=== PATIENT | female | born 1945 | race Caucasian/White ===

== ENCOUNTER 2022-02-08 16:06 | Inpatient (IN) | payer MEDICARE ==
--- NOTE | 2022-02-08 16:43 | XRAY ---
Indication: Dyspnea. Comparison: July 16, 2021 Portable chest demonstrates new left left base infiltrate versus atelectasis. Remaining heart and right lung unremarkable again with incidental right jugular central venous access catheter and 2 cardiac electrodes. Bony thorax intact again with osteopenia and degenerative changes.
[2022-02-08 17:08] LABS: Basophil (Absolute #) 0.02 x10^3/uL (0-0.4); Eosinophil % 7.2 % (0.00-5.0); Eosinophil (Absolute #) 0.43 x10^3/uL (0-0.5); Hematocrit 39.4 % (35-47); Lymphocyte (Absolute #) 1.34 x10^3/uL (1.0-4.6); Lymphocytes % 22.4 % (24.0-44.0); Mean Cell Volume 95.9 fL (78-100); Mean Corpuscular Hemoglobin 29.2 pg (26-32); Mean Corpuscular Hgb Concent. 30.5 g/dL (32-36); Mean Platelet Volume 9.7 fL (7.5-11.0); Monocyte (Absolute #) 0.37 x10^3/uL (0.0-1.3); Monocytes % 6.2 % (0.0-12.0); Neutrophil % 63.6 % (36.0-66.0); Platelet Count 314 x10^3/uL (150-450); Red Blood Count 4.11 x10^6/uL (4.1-5.4); Red Cell Distribution Width 15.1 % (11.5-14.0)
[2022-02-08 17:20] LABS: INR 1.04 (0.8-3.0); PTT 27.7 SECONDS (25.1-36.5)
[2022-02-08 17:25] LABS: Appearance TURBID (CLEAR)
[2022-02-08 17:25] LABS: ALBUMIN 4.1 g/dL (3.5-5.0); BILIRUBIN,TOTAL 0.6 mg/dL (0.2-1.3); Calcium 8.7 mg/dL (8.4-10.2); Creatinine 1 1.73 mg/dL (0.52-1.04); EST GLOMERULAR FILTRATION RATE 30.6 ML/MIN; Potassium 4.6 mmol/L (3.5-5.1)
--- NOTE | 2022-02-08 17:25 | ERPHSYRPT ---
- History of Present Illness Source: patient, other ( in ER w CV19) Exam Limitations: other (Pt oriented to name only which is baseline. majority of Hx from .) Patient Subjective Stated Complaint: Patient c/o being tired. Patient's son and states patient is coughing and SOB. Triage Nursing Assessment: Patient brought back to ED in a w/c. She is dependent on others to transfer; took assist of 2 to transfer from chair to bed. 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 No SOB noted but patient has a moist, non-productive cough. Rhonchi noted in upper lung graham. Patient is confused but the confusion is not new for this patient per 's report. She is alert to self only; confused to time, place, situation. Physician History: 76 yo wf who's is also being seen in the ER for CV19 presents w cough. Pt has a chronic, dense R hemiparesis and is only oriented x1 which is her baseline. states that she has had a cough for 2-3 days and has been dyspneic. Coryza/N/V/D/chest pain/abdominal pain all denied by . Timing/Duration: other (2-3 days) Cough Quality/Degree: dry cough Possible Cause: no prior episodes Modifying Factors: Improves With: coughing Associated Symptoms: shortness of breath Allergies/Adverse Reactions: No Known Drug Allergies Allergy (Verified 02/08/22 16:12) Home Medications: Amitriptyline HCl 25 mg [Amitriptyline 25 mg Tablet] 75 mg PO HS 02/08/22 [History] Atorvastatin Calcium [Lipitor] 1 tab PO HS 02/08/22 [History] Carvedilol [Coreg ] 1 tab PO DAILY 02/08/22 [History] Hx Tetanus, Diphtheria Vaccination/Date Given: Yes Hx Influenza Vaccination/Date Given: No Hx Pneumococcal Vaccination/Date Given: Yes Immunizations Up to Date: Yes Travel Risk - International Travel Have you traveled outside of the country in past 3 weeks: No - Coronavirus Screening Are you exhibiting any of the following symptoms?: Yes Symptoms: Cough: New Onset, Headaches/Body Aches/Fatigue Close contact with a COVID-19 positive Pt in past 14-21 Days: Yes - Vaccine Status Have you recieved a Covid-19 vaccination: No - Review of Systems Constitutional: No Symptoms Eyes: No Symptoms Ears, Nose, & Throat: No Symptoms, Nose Congestion, Nose Discharge Respiratory: No Symptoms, Cough, Dyspnea Cardiac: No Symptoms Abdominal/Gastrointestinal: No Symptoms Genitourinary Symptoms: No Symptoms Musculoskeletal: No Symptoms Skin: No Symptoms Neurological: No Symptoms Psychological: No Symptoms Endocrine: No Symptoms Hematologic/Lymphatic: No Symptoms Immunological/Allergic: No Symptoms - Past Medical History Pertinent Past Medical History: Yes Neurological History: Stroke ENT History: No Pertinent History Cardiac History: Aneurysm, Hypertension Respiratory History: No Pertinent History Endocrine Medical History: No Pertinent History Musculoskeletal History: Osteoarthritis GI Medical History: No Pertinent History History: No Pertinent History Psycho-Social History: No Pertinent History Female Reproductive Disorders: No Pertinent History - Past Surgical History Past Surgical History: Yes Neuro Surgical History: Other Cardiac: No Pertinent History Gastrointestinal: No Pertinent History Genitourinary: No Pertinent History Musculoskeletal: No Pertinent History Female Surgical History: No Pertinent History - Social History Smoking Status: Former smoker Exposure to second hand smoke: No Drug Use: none Patient Lives Alone: No Significant Family History: no pertinent family hx - Nursing Vital Signs Nursing Vital Signs: Initial Vital Signs Temperature 97 F 02/08/22 16:13 Pulse Rate 74 02/08/22 16:13 Respiratory Rate 20 02/08/22 16:13 Blood Pressure 109/57 02/08/22 16:13 O2 Sat by Pulse Oximetry 97 02/08/22 16:13 Pain Scale Pain Intensity 0 WNL - Physical Exam General Appearance: no apparent distress Eye Exam: PERRL/EOMI, eyes nml inspection Ears, Nose, Throat Exam: normal ENT inspection, TMs normal Neck Exam: normal inspection, non-tender, supple, No meningismus, No mass, No Brudzinski, No Kernig's Respiratory Exam: crackles/rales (Faint bibasilar rales), No respiratory distress Cardiovascular Exam: regular rate/rhythm, normal heart sounds, normal peripheral pulses, capillary refill <2 sec, No murmur Gastrointestinal/Abdomen Exam: soft, normal bowel sounds, No tenderness Back Exam: other (Nursing states mild sacral discoloration which might be early stage 1 pressure ulceration) Extremity Exam: normal inspection, normal range of motion Neurologic Exam: alert, other (Dense R hemiparesis/Oriented x1) Skin Exam: normal color, warm, dry, No rash Lymphatic Exam: No adenopathy SpO2 Interpretation: normal SpO2: 97 O2 Delivery: Room Air - Course Nursing assessment & vital signs reviewed: Yes - Radiology Exams Chest X-ray Interpretation: Discussed w/ radiologist (LLL atelectasis vs infiltrate) Ordered Tests: Active Orders 24 hr Category Date Time Status EKG-ER Only STAT Care 02/08/22 16:23 Completed Consistent Carbohydrate Diet 2000 Calorie Diet 02/09/22 Breakfast Active CHEST 1 VIEW (PORTABLE) Stat Exams 02/08/22 16:16 Completed BLOOD CULTURE Stat Lab 02/08/22 16:20 Received CBC W DIFF AM.LAB Lab 02/09/22 04:00 Ordered CBC W DIFF Stat Lab 02/08/22 16:55 Completed CMP AM.LAB Lab 02/09/22 04:00 Ordered CMP Stat Lab 02/08/22 16:55 Completed CULTURE,URINE Stat Lab 02/08/22 16:48 Received Lactic Acid Stat Lab 02/08/22 16:32 Completed NT PRO BNP Stat Lab 02/08/22 16:55 Completed PROTIME WITH INR Stat Lab 02/08/22 16:55 Completed PTT Stat Lab 02/08/22 16:55 Completed TROPONIN Q4H Lab 02/08/22 16:55 Completed TROPONIN Q4H Lab 02/08/22 20:11 Completed TROPONIN Q4H Lab 02/09/22 00:30 Ordered UA W/RFX CULTURE Stat Lab 02/08/22 16:48 Completed Transfer Order Routine Transfer 02/08/22 Completed Medication Summary Generic Name Dose Route Start Last Admin Trade Name Freq PRN Reason Stop Dose Admin Albuterol Sulfate 4 puff 02/08/22 18:49 Albuterol Common Canister Inhaler IH 03/10/22 18:48 Q4H PRN PRN SHORTNESS OF BREATH/WHEEZING Heparin Sodium (Beef Lung) 5,000 unit 02/08/22 22:00 Heparin 5000 Units/0.5 Ml 5,000 Unit/0.5 Ml Syr SQ 03/10/22 21:59 Q8HT JEFF Ceftriaxone Sodium/Dextrose 1 g in 50 mls @ 100 mls/hr 02/09/22 10:00 Rocephin 1 Gm-D5w 50 Ml Bag IV 02/12/22 09:59 Q24H10 JEFF Sodium Chloride 1,000 mls @ 100 mls/hr 02/08/22 19:00 Sodium Chloride 0.9% 1000 Ml IV 03/10/22 18:59 .Q10H JEFF Ondansetron HCl 4 mg 02/08/22 18:49 Ondansetron Hcl 4 Mg/2 Ml Vial IV 03/10/22 18:48 Q6H PRN PRN NAUSEA/VOMITING Pantoprazole Sodium 40 mg 02/09/22 10:00 Pantoprazole 40 Mg Vial IV 03/11/22 09:59 Q24H10 JEFF Discontinued Medications Generic Name Dose Route Start Last Admin Trade Name Freq PRN Reason Stop Dose Admin Ceftriaxone Sodium/Dextrose 1 g in 50 mls @ 100 mls/hr 02/08/22 18:48 02/08/22 19:35 Rocephin 1 Gm-D5w 50 Ml Bag IV 02/08/22 19:17 Infused STAT STA Infusion Sodium Chloride 1,000 mls @ 999 mls/hr 02/08/22 18:49 02/08/22 20:27 Sodium Chloride 0.9% 1000 Ml IV 02/08/22 19:49 Infused .Q1H1M STA Infusion Ceftriaxone Sodium/Dextrose Confirm 02/08/22 18:55 Rocephin 1 Gm-D5w 50 Ml Bag Administered 02/08/22 18:56 Dose 1 g in 50 mls @ ud IV .[facility] Lab/Rad Data: Laboratory Result Diagrams 02/08/22 16:55 02/08/22 16:55 Laboratory Results 02/08/22 02/08/22 02/08/22 Range/Units 20:11 17:00 16:55 WBC (4.0-10.5) x10^3/uL RBC (4.1-5.4) x10^6/uL Hgb (12.0-16.0) g/dL Hct (35-47) % MCV (78-100) fL MCH (26-32) pg MCHC (32-36) g/dL RDW (11.5-14.0) % Plt Count (150-450) x10^3/uL MPV (7.5-11.0) fL Gran % (36.0-66.0) % Immature Gran % (Auto) (0.00-0.4) % Nucleat RBC Rel Count (0.00-0.1) % Eos # (Auto) (0-0.5) x10^3/uL Immature Gran # (Auto) (0.00-0.03) x10^3u/L Absolute Lymphs (auto) (1.0-4.6) x10^3/uL Absolute Monos (auto) (0.0-1.3) x10^3/uL Absolute Nucleated RBC (0.00-0.01) x10^3u/L Lymphocytes % (24.0-44.0) % Monocytes % (0.0-12.0) % Eosinophils % (0.00-5.0) % Basophils % (0.0-0.4) % Absolute Granulocytes (1.4-6.9) x10^3/uL Basophils # (0-0.4) x10^3/uL PT (9.4-12.5) SECONDS INR (0.8-3.0) APTT (25.1-36.5) SECONDS Sodium (137-145) mmol/L Potassium (3.5-5.1) mmol/L Chloride (98-107) mmol/L Carbon Dioxide (22-30) mmol/L Anion Gap (5-15) MEQ/L BUN (7-17) mg/dL Creatinine (0.52-1.04) mg/dL Estimated GFR ML/MIN Glucose (74-106) mg/dL Lactic Acid (0.4-2.0) Calcium (8.4-10.2) mg/dL Total Bilirubin (0.2-1.3) mg/dL AST (14-36) U/L ALT (0-35) U/L Alkaline Phosphatase (38-126) U/L Troponin I 0.021 0.015 (0.000-0.034) ng/mL NT-Pro-B Natriuret Pep (0-900) pg/mL Serum Total Protein (6.3-8.2) g/dL Albumin (3.5-5.0) g/dL Urinalys Dipstick Clnc Urine Color (YELLOW) Urine Appearance (CLEAR) Urine pH (5-6) Ur Specific [place] (1.005-1.025) POC Urine Protein Conf (Negative) Urine Ketones (NEGATIVE) Urine Nitrite (NEGATIVE) Urine Bilirubin (NEGATIVE) Urine Urobilinogen (0-1) mg/dL Urine Leukocytes (NEGATIVE) Urine WBC (Auto) (0-5) /HPF Urine RBC (Auto) (0-2) /HPF U Epithel Cells (Auto) (FEW) /HPF Urine Bacteria (Auto) (NEGATIVE) /HPF Urine RBC (0-5) Luke/ul Ur Culture Indicated? Urine Glucose (NEGATIVE) mg/dL Influenza Type A Ag NEGATIVE (NEGATIVE) Influenza Type B Ag NEGATIVE (NEGATIVE) RSV (PCR) NEGATIVE (Negative) SARS-CoV-2 (PCR) POSITIVE A (NEGATIVE) 02/08/22 02/08/22 02/08/22 Range/Units 16:55 16:55 16:55 WBC 6.0 (4.0-10.5) x10^3/uL RBC 4.11 (4.1-5.4) x10^6/uL Hgb 12.0 (12.0-16.0) g/dL Hct 39.4 (35-47) % MCV 95.9 (78-100) fL MCH 29.2 (26-32) pg MCHC 30.5 L (32-36) g/dL RDW 15.1 H (11.5-14.0) % Plt Count 314 (150-450) x10^3/uL MPV 9.7 (7.5-11.0) fL Gran % 63.6 (36.0-66.0) % Immature Gran % (Auto) 0.3 (0.00-0.4) % Nucleat RBC Rel Count 0.0 (0.00-0.1) % Eos # (Auto) 0.43 (0-0.5) x10^3/uL Immature Gran # (Auto) 0.02 (0.00-0.03) x10^3u/L Absolute Lymphs (auto) 1.34 (1.0-4.6) x10^3/uL Absolute Monos (auto) 0.37 (0.0-1.3) x10^3/uL Absolute Nucleated RBC 0.00 (0.00-0.01) x10^3u/L Lymphocytes % 22.4 L (24.0-44.0) % Monocytes % 6.2 (0.0-12.0) % Eosinophils % 7.2 H (0.00-5.0) % Basophils % 0.3 (0.0-0.4) % Absolute Granulocytes 3.80 (1.4-6.9) x10^3/uL Basophils # 0.02 (0-0.4) x10^3/uL PT 11.0 (9.4-12.5) SECONDS INR 1.04 (0.8-3.0) APTT 27.7 (25.1-36.5) SECONDS Sodium 144 (137-145) mmol/L Potassium 4.6 (3.5-5.1) mmol/L Chloride 110 H (98-107) mmol/L Carbon Dioxide 27 (22-30) mmol/L Anion Gap 12.0 (5-15) MEQ/L BUN 48 H (7-17) mg/dL Creatinine 1.73 H (0.52-1.04) mg/dL Estimated GFR 30.6 ML/MIN Glucose 123 H (74-106) mg/dL Lactic Acid (0.4-2.0) Calcium 8.7 (8.4-10.2) mg/dL Total Bilirubin 0.60 (0.2-1.3) mg/dL AST 31 (14-36) U/L ALT 21 (0-35) U/L Alkaline Phosphatase 106 (38-126) U/L Troponin I (0.000-0.034) ng/mL NT-Pro-B Natriuret Pep 752 (0-900) pg/mL Serum Total Protein 8.0 (6.3-8.2) g/dL Albumin 4.1 (3.5-5.0) g/dL Urinalys Dipstick Clnc Urine Color (YELLOW) Urine Appearance (CLEAR) Urine pH (5-6) Ur Specific [place] (1.005-1.025) POC Urine Protein Conf (Negative) Urine Ketones (NEGATIVE) Urine Nitrite (NEGATIVE) Urine Bilirubin (NEGATIVE) Urine Urobilinogen (0-1) mg/dL Urine Leukocytes (NEGATIVE) Urine WBC (Auto) (0-5) /HPF Urine RBC (Auto) (0-2) /HPF U Epithel Cells (Auto) (FEW) /HPF Urine Bacteria (Auto) (NEGATIVE) /HPF Urine RBC (0-5) Luke/ul Ur Culture Indicated? Urine Glucose (NEGATIVE) mg/dL Influenza Type A Ag (NEGATIVE) Influenza Type B Ag (NEGATIVE) RSV (PCR) (Negative) SARS-CoV-2 (PCR) (NEGATIVE) 02/08/22 02/08/22 Range/Units 16:48 16:32 WBC (4.0-10.5) x10^3/uL RBC (4.1-5.4) x10^6/uL Hgb (12.0-16.0) g/dL Hct (35-47) % MCV (78-100) fL MCH (26-32) pg MCHC (32-36) g/dL RDW (11.5-14.0) % Plt Count (150-450) x10^3/uL MPV (7.5-11.0) fL Gran % (36.0-66.0) % Immature Gran % (Auto) (0.00-0.4) % Nucleat RBC Rel Count (0.00-0.1) % Eos # (Auto) (0-0.5) x10^3/uL Immature Gran # (Auto) (0.00-0.03) x10^3u/L Absolute Lymphs (auto) (1.0-4.6) x10^3/uL Absolute Monos (auto) (0.0-1.3) x10^3/uL Absolute Nucleated RBC (0.00-0.01) x10^3u/L Lymphocytes % (24.0-44.0) % Monocytes % (0.0-12.0) % Eosinophils % (0.00-5.0) % Basophils % (0.0-0.4) % Absolute Granulocytes (1.4-6.9) x10^3/uL Basophils # (0-0.4) x10^3/uL PT (9.4-12.5) SECONDS INR (0.8-3.0) APTT (25.1-36.5) SECONDS Sodium (137-145) mmol/L Potassium (3.5-5.1) mmol/L Chloride (98-107) mmol/L Carbon Dioxide (22-30) mmol/L Anion Gap (5-15) MEQ/L BUN (7-17) mg/dL Creatinine (0.52-1.04) mg/dL Estimated GFR ML/MIN Glucose (74-106) mg/dL Lactic Acid 1.2 (0.4-2.0) Calcium (8.4-10.2) mg/dL Total Bilirubin (0.2-1.3) mg/dL AST (14-36) U/L ALT (0-35) U/L Alkaline Phosphatase (38-126) U/L Troponin I (0.000-0.034) ng/mL NT-Pro-B Natriuret Pep (0-900) pg/mL Serum Total Protein (6.3-8.2) g/dL Albumin (3.5-5.0) g/dL Urinalys Dipstick Clnc MAIN LAB Urine Color BROWN (YELLOW) Urine Appearance TURBID (CLEAR) Urine pH 5.5 (5-6) Ur Specific [place] 1.025 (1.005-1.025) POC Urine Protein Conf 100 (Negative) Urine Ketones NEGATIVE (NEGATIVE) Urine Nitrite POSITIVE (NEGATIVE) Urine Bilirubin SMALL (NEGATIVE) Urine Urobilinogen 0.2 (0-1) mg/dL Urine Leukocytes SMALL (NEGATIVE) Urine WBC (Auto) >100 (0-5) /HPF Urine RBC (Auto) >101 (0-2) /HPF U Epithel Cells (Auto) RARE (FEW) /HPF Urine Bacteria (Auto) FEW (NEGATIVE) /HPF Urine RBC LARGE (0-5) Luke/ul Ur Culture Indicated? YES Urine Glucose NEGATIVE (NEGATIVE) mg/dL Influenza Type A Ag (NEGATIVE) Influenza Type B Ag (NEGATIVE) RSV (PCR) (Negative) SARS-CoV-2 (PCR) (NEGATIVE) - Progress Progress: improved Progress Note: 02/08/22 18:[address] Chawla 1L NS bolus 1gm IV Rocephin Counseled pt/family regarding: lab results, diagnosis, rad results - Departure Departure Disposition: Observation Clinical Impression: UTI (urinary tract infection), COVID-19, Mild dehydration Condition: Stable Critical Care Time: No
[2022-02-08 17:26] LABS: Bilirubin SMALL (NEGATIVE); Dipstick done @ ? MAIN LAB; Glucose NEGATIVE (NEGATIVE); Ketones NEGATIVE (NEGATIVE); Nitrite POSITIVE (NEGATIVE); Ph 5.5 (5-6); Protein,Urine Dip 100 (Negative); RBC LARGE Ery/ul (0-5); Specific Gravity 1.025 (1.005-1.025); Urobilinogen 0.2 mg/dL (0-1)
[2022-02-08 17:43] LABS: Bacteria FEW /HPF (NEGATIVE); Epithelial Cells RARE /HPF (FEW); WBC >100 /HPF (0-5)
[2022-02-08 17:46] LABS: RBC >101 /HPF (0-2); Urine Cultured Indicated? YES
[2022-02-08 17:53] LABS: INFLUENZA A NEGATIVE (NEGATIVE); INFLUENZA B NEGATIVE (NEGATIVE); RESPIRATORY SYNCTIAL VIRUS NEGATIVE (Negative)
[2022-02-08 18:12] LABS: SARS-CoV-2 Xpert Express POSITIVE (NEGATIVE)
[2022-02-08] MEDS ORDERED: ROCEPHIN 1 Gm-D5w 50 ml Bag** 1 G/50 ML IVPB IV STA (18:48)
[2022-02-08] MEDS ORDERED: Sodium Chloride 0.9% 1000 ML 1,000 ML IV STA (18:49)
[2022-02-08] MEDS ORDERED: Zofran 4 MG/2 ML VIAL IV PRN (18:49)
[2022-02-08] MEDS ORDERED: VENTOLIN COMMON CANISTER IH PRN (18:49)
[2022-02-08] MEDS ORDERED: ROCEPHIN 1 Gm-D5w 50 ml Bag** 1 G/50 ML IVPB IV ONE (18:55)
[2022-02-08] MEDS: Sodium Chloride 0.9% 1000 ML 1,000 ML IV SCH (22:40)
[2022-02-08] MEDS ORDERED: REMDESIVIR 200 MG in Sodium Chloride 0.9% 250 ML 250 ML IV ONE (23:36)
[2022-02-08] MEDS ORDERED: AMITRIPTYLINE 25 MG TABLET PO ONE (23:55)
[2022-02-08] MEDS ORDERED: Neurontin PO ONE (23:56)
[2022-02-08] MEDS ORDERED: ZOCOR 20MG PO ONE (23:56)
[2022-02-08] MEDS ORDERED: Ativan 1 MG PO PRN (23:57)
[2022-02-09] MEDS ORDERED: Sodium Chloride 0.9% 250 ML 250 ML IV ONE (00:15)
[2022-02-09] MEDS ORDERED: REMDESIVIR IV ONE (00:15)
[2022-02-09] MEDS: Decadron 4 MG INJ IV SCH ×2 (00:21→10:19)
[2022-02-09] MEDS: HEPARIN 5000 UNITS/0.5 ML (HIGH RISK MED) SQ SCH ×4 (00:21→21:22)
[2022-02-09 03:37] LABS: Absolute Neutrophil Ct (ANC) 5.04 x10^3/uL (1.4-6.9); Basophil (Absolute #) 0.02 x10^3/uL (0-0.4); Eosinophil % 2.2 % (0.00-5.0); Eosinophil (Absolute #) 0.14 x10^3/uL (0-0.5); Hematocrit 36.7 % (35-47); Hemoglobin 11.1 g/dL (12.0-16.0); Lymphocyte (Absolute #) 0.95 x10^3/uL (1.0-4.6); Lymphocytes % 14.9 % (24.0-44.0); Mean Cell Volume 96.3 fL (78-100); Mean Corpuscular Hemoglobin 29.1 pg (26-32); Mean Corpuscular Hgb Concent. 30.2 g/dL (32-36); Mean Platelet Volume 9.2 fL (7.5-11.0); Monocytes % 3.1 % (0.0-12.0); Platelet Count 282 x10^3/uL (150-450); Red Blood Count 3.81 x10^6/uL (4.1-5.4); Red Cell Distribution Width 15.1 % (11.5-14.0); White Blood Count 6.4 x10^3/uL (4.0-10.5)
[2022-02-09 04:07] LABS: ALBUMIN 3.4 g/dL (3.5-5.0); ANION GAP 11.9 MEQ/L (5-15); BILIRUBIN,TOTAL 0.4 mg/dL (0.2-1.3); Calcium 7.7 mg/dL (8.4-10.2); Creatinine 1 1.08 mg/dL (0.52-1.04); EST GLOMERULAR FILTRATION RATE 52.7 ML/MIN; PREALBUMIN 14.13 mg/dL (17.6-36.0); Potassium 4.3 mmol/L (3.5-5.1); Total Protein 6.7 g/dL (6.3-8.2)
[2022-02-09] MEDS: Sodium Chloride 0.9% 1000 ML 1,000 ML IV SCH ×2 (06:54→17:52)
[2022-02-09] MEDS: PROTONIX 40 MG IV IV SCH (10:19)
[2022-02-09] MEDS: Zestril 20 MG PO SCH (15:40)
[2022-02-09] MEDS: ZOLOFT 50 MG TABLET PO SCH (15:40)
[2022-02-09] MEDS: Coreg PO SCH (15:40)
[2022-02-09] MEDS: Neurontin PO SCH ×2 (15:40→21:21)
--- NOTE | 2022-02-09 16:24 | PCM.HP ---
History of Present Illness - Chief Complaint Chief Complaint: covid History of Present Illness: is a 76 year old female pt s/o CVA wtih R hemiplegia who was admitted through ER wtih UTI, COVID 19, and PNA. She has been sick since approx 02/06/22. History per her . She is only oriented x 1, which is her normal. For location, "I'm here with you!" She wants cake (love sweets). Her CXR with new L base infiltrate v atelectasis. WBC 6.4. eGFR 30.6 on admission, 52.7 this morning. UA with brown turbid urine, > 100 WBC, and > 101 RBC (Ucx pending). Pt is not on O2. - Review of Systems All Other Systems: Unable due to condition Medications & Allergies Home Medications: Home Medication List Amitriptyline HCl 25 mg [Amitriptyline 25 mg Tablet] 75 mg PO HS 02/08/22 [History Confirmed 02/08/22] Atorvastatin Calcium [Lipitor] 1 tab PO HS 02/08/22 [History Confirmed 02/08/22] Carvedilol [Coreg ] 1 tab PO DAILY 02/08/22 [History Confirmed 02/08/22] Gabapentin 100 mg PO TID 02/08/22 [History Confirmed 02/08/22] Lisinopril 20 mg [Zestril 20 MG] 20 mg PO DAILY 02/08/22 [History Confirmed 02/08/22] Lorazepam 1 mg [Ativan 1 MG] 1 mg PO QHS PRN 02/08/22 [History Confirmed 02/08/22] Sertraline HCl 50 mg [Zoloft 50 mg Tablet] 50 mg PO DAILY 02/08/22 [History Confirmed 02/08/22] Allergies/Adverse Reactions: Allergies Allergy/AdvReac Type Severity Reaction Status Date / Time No Known Drug Allergies Allergy Verified 02/08/22 16:12 - Past Medical History Past Medical History: Yes Neurological History: Stroke ENT History: No Pertinent History Cardiac History: Aneurysm, Hypertension Respiratory History: No Pertinent History Endocrine Medical History: No Pertinent History Musculoskelatal History: Osteoarthritis GI Medical History: No Pertinent History History: No Pertinent History Pyscho-Social History: No Pertinent History Reproductive Disorders: No Pertinent History Comment: Patient unable to clarify history - Female History Are you now?: No - Past Surgical History Past Surgical History: Yes Neuro Surgical History: Other Cardiac History: No Pertinent History GI Surgical History: No Pertinent History Genitourinary Surgical Hx: No Pertinent History Musculskeletal Surgical Hx: No Pertinent History Female Surgical History: No Pertinent History Other Surgical History: Patient is unable to clarify history - Social History Smoking Status: Former smoker Exposure to second hand smoke: No Alcohol: None Drug Use: none Significant Family History: no pertinent family hx - Physical Exam Vital Signs: Vital Signs - 24 hr Temp Pulse Resp BP Pulse Ox 02/09/22 13:20 18 02/09/22 12:00 97.1 F 77 18 128/63 90 L 02/09/22 11:54 94 L 02/09/22 09:43 20 02/09/22 08:00 20 02/09/22 07:23 97.6 F 81 20 128/67 93 L 02/09/22 06:00 20 02/09/22 05:00 97.0 F 77 20 110/59 95 02/09/22 03:48 21 02/09/22 03:00 82 21 02/09/22 02:00 18 02/09/22 01:28 97.1 F 79 18 139/65 97 02/09/22 01:00 97.3 F 80 18 130/74 97 02/09/22 00:31 79 20 96 02/09/22 00:00 18 02/08/22 23:33 97 02/08/22 23:00 97.1 F 79 18 135/65 97 02/08/22 19:34 82 131/61 99 General Appearance: no apparent distress, alert Neurologic Exam: cooperative, disoriented (as usual. very pleasant as usual.) Eye Exam: eyes nml inspection Ears, Nose, Throat Exam: moist mucous membranes Neck Exam: normal inspection Respiratory Exam: normal breath sounds, lungs clear, crackles/rales (scattered rales), wheezing (faint, expiratory), No rhonchi Cardiovascular Exam: regular rate/rhythm, normal heart sounds, No murmur Gastrointestinal/Abdomen Exam: soft, normal bowel sounds, No tenderness, No distention, No mass, No guarding, No rebound Back Exam: normal inspection, No rash Extremity Exam: normal inspection, No pedal edema, No swelling Skin Exam: normal color, warm, dry, No rash Results - Labs Lab/Micro Results: Lab Results-Last 24 Hours 02/08/22 02/08/22 02/08/22 Range/Units 16:32 16:48 16:55 WBC 6.0 (4.0-10.5) x10^3/uL RBC 4.11 (4.1-5.4) x10^6/uL Hgb 12.0 (12.0-16.0) g/dL Hct 39.4 (35-47) % MCV 95.9 (78-100) fL MCH 29.2 (26-32) pg MCHC 30.5 L (32-36) g/dL RDW 15.1 H (11.5-14.0) % Plt Count 314 (150-450) x10^3/uL MPV 9.7 (7.5-11.0) fL Gran % 63.6 (36.0-66.0) % Immature Gran % (Auto) 0.3 (0.00-0.4) % Nucleat RBC Rel Count 0.0 (0.00-0.1) % Eos # (Auto) 0.43 (0-0.5) x10^3/uL Immature Gran # (Auto) 0.02 (0.00-0.03) x10^3u/L Absolute Lymphs (auto) 1.34 (1.0-4.6) x10^3/uL Absolute Monos (auto) 0.37 (0.0-1.3) x10^3/uL Absolute Nucleated RBC 0.00 (0.00-0.01) x10^3u/L Lymphocytes % 22.4 L (24.0-44.0) % Monocytes % 6.2 (0.0-12.0) % Eosinophils % 7.2 H (0.00-5.0) % Basophils % 0.3 (0.0-0.4) % Absolute Granulocytes 3.80 (1.4-6.9) x10^3/uL Basophils # 0.02 (0-0.4) x10^3/uL PT (9.4-12.5) SECONDS INR (0.8-3.0) APTT (25.1-36.5) SECONDS Sodium (137-145) mmol/L Potassium (3.5-5.1) mmol/L Chloride (98-107) mmol/L Carbon Dioxide (22-30) mmol/L Anion Gap (5-15) MEQ/L BUN (7-17) mg/dL Creatinine (0.52-1.04) mg/dL Estimated GFR ML/MIN Glucose (74-106) mg/dL Lactic Acid 1.2 (0.4-2.0) Calcium (8.4-10.2) mg/dL Total Bilirubin (0.2-1.3) mg/dL AST (14-36) U/L ALT (0-35) U/L Alkaline Phosphatase (38-126) U/L Troponin I (0.000-0.034) ng/mL NT-Pro-B Natriuret Pep (0-900) pg/mL Serum Total Protein (6.3-8.2) g/dL Albumin (3.5-5.0) g/dL Prealbumin (17.6-36.0) mg/dL Urinalys Dipstick Clnc MAIN LAB Urine Color BROWN (YELLOW) Urine Appearance TURBID (CLEAR) Urine pH 5.5 (5-6) Ur Specific [place] 1.025 (1.005-1.025) POC Urine Protein Conf 100 (Negative) Urine Ketones NEGATIVE (NEGATIVE) Urine Nitrite POSITIVE (NEGATIVE) Urine Bilirubin SMALL (NEGATIVE) Urine Urobilinogen 0.2 (0-1) mg/dL Urine Leukocytes SMALL (NEGATIVE) Urine WBC (Auto) >100 (0-5) /HPF Urine RBC (Auto) >101 (0-2) /HPF U Epithel Cells (Auto) RARE (FEW) /HPF Urine Bacteria (Auto) FEW (NEGATIVE) /HPF Urine RBC LARGE (0-5) Luke/ul Ur Culture Indicated? YES Urine Glucose NEGATIVE (NEGATIVE) mg/dL Influenza Type A Ag (NEGATIVE) Influenza Type B Ag (NEGATIVE) RSV (PCR) (Negative) SARS-CoV-2 (PCR) (NEGATIVE) 02/08/22 02/08/22 02/08/22 Range/Units 16:55 16:55 16:55 WBC (4.0-10.5) x10^3/uL RBC (4.1-5.4) x10^6/uL Hgb (12.0-16.0) g/dL Hct (35-47) % MCV (78-100) fL MCH (26-32) pg MCHC (32-36) g/dL RDW (11.5-14.0) % Plt Count (150-450) x10^3/uL MPV (7.5-11.0) fL Gran % (36.0-66.0) % Immature Gran % (Auto) (0.00-0.4) % Nucleat RBC Rel Count (0.00-0.1) % Eos # (Auto) (0-0.5) x10^3/uL Immature Gran # (Auto) (0.00-0.03) x10^3u/L Absolute Lymphs (auto) (1.0-4.6) x10^3/uL Absolute Monos (auto) (0.0-1.3) x10^3/uL Absolute Nucleated RBC (0.00-0.01) x10^3u/L Lymphocytes % (24.0-44.0) % Monocytes % (0.0-12.0) % Eosinophils % (0.00-5.0) % Basophils % (0.0-0.4) % Absolute Granulocytes (1.4-6.9) x10^3/uL Basophils # (0-0.4) x10^3/uL PT 11.0 (9.4-12.5) SECONDS INR 1.04 (0.8-3.0) APTT 27.7 (25.1-36.5) SECONDS Sodium 144 (137-145) mmol/L Potassium 4.6 (3.5-5.1) mmol/L Chloride 110 H (98-107) mmol/L Carbon Dioxide 27 (22-30) mmol/L Anion Gap 12.0 (5-15) MEQ/L BUN 48 H (7-17) mg/dL Creatinine 1.73 H (0.52-1.04) mg/dL Estimated GFR 30.6 ML/MIN Glucose 123 H (74-106) mg/dL Lactic Acid (0.4-2.0) Calcium 8.7 (8.4-10.2) mg/dL Total Bilirubin 0.60 (0.2-1.3) mg/dL AST 31 (14-36) U/L ALT 21 (0-35) U/L Alkaline Phosphatase 106 (38-126) U/L Troponin I 0.015 (0.000-0.034) ng/mL NT-Pro-B Natriuret Pep 752 (0-900) pg/mL Serum Total Protein 8.0 (6.3-8.2) g/dL Albumin 4.1 (3.5-5.0) g/dL Prealbumin (17.6-36.0) mg/dL Urinalys Dipstick Clnc Urine Color (YELLOW) Urine Appearance (CLEAR) Urine pH (5-6) Ur Specific [place] (1.005-1.025) POC Urine Protein Conf (Negative) Urine Ketones (NEGATIVE) Urine Nitrite (NEGATIVE) Urine Bilirubin (NEGATIVE) Urine Urobilinogen (0-1) mg/dL Urine Leukocytes (NEGATIVE) Urine WBC (Auto) (0-5) /HPF Urine RBC (Auto) (0-2) /HPF U Epithel Cells (Auto) (FEW) /HPF Urine Bacteria (Auto) (NEGATIVE) /HPF Urine RBC (0-5) Luke/ul Ur Culture Indicated? Urine Glucose (NEGATIVE) mg/dL Influenza Type A Ag (NEGATIVE) Influenza Type B Ag (NEGATIVE) RSV (PCR) (Negative) SARS-CoV-2 (PCR) (NEGATIVE) 02/08/22 02/08/22 02/09/22 Range/Units 17:00 20:11 03:33 WBC (4.0-10.5) x10^3/uL RBC (4.1-5.4) x10^6/uL Hgb (12.0-16.0) g/dL Hct (35-47) % MCV (78-100) fL MCH (26-32) pg MCHC (32-36) g/dL RDW (11.5-14.0) % Plt Count (150-450) x10^3/uL MPV (7.5-11.0) fL Gran % (36.0-66.0) % Immature Gran % (Auto) (0.00-0.4) % Nucleat RBC Rel Count (0.00-0.1) % Eos # (Auto) (0-0.5) x10^3/uL Immature Gran # (Auto) (0.00-0.03) x10^3u/L Absolute Lymphs (auto) (1.0-4.6) x10^3/uL Absolute Monos (auto) (0.0-1.3) x10^3/uL Absolute Nucleated RBC (0.00-0.01) x10^3u/L Lymphocytes % (24.0-44.0) % Monocytes % (0.0-12.0) % Eosinophils % (0.00-5.0) % Basophils % (0.0-0.4) % Absolute Granulocytes (1.4-6.9) x10^3/uL Basophils # (0-0.4) x10^3/uL PT (9.4-12.5) SECONDS INR (0.8-3.0) APTT (25.1-36.5) SECONDS Sodium (137-145) mmol/L Potassium (3.5-5.1) mmol/L Chloride (98-107) mmol/L Carbon Dioxide (22-30) mmol/L Anion Gap (5-15) MEQ/L BUN (7-17) mg/dL Creatinine (0.52-1.04) mg/dL Estimated GFR ML/MIN Glucose (74-106) mg/dL Lactic Acid (0.4-2.0) Calcium (8.4-10.2) mg/dL Total Bilirubin (0.2-1.3) mg/dL AST (14-36) U/L ALT (0-35) U/L Alkaline Phosphatase (38-126) U/L Troponin I 0.021 0.033 (0.000-0.034) ng/mL NT-Pro-B Natriuret Pep (0-900) pg/mL Serum Total Protein (6.3-8.2) g/dL Albumin (3.5-5.0) g/dL Prealbumin (17.6-36.0) mg/dL Urinalys Dipstick Clnc Urine Color (YELLOW) Urine Appearance (CLEAR) Urine pH (5-6) Ur Specific [place] (1.005-1.025) POC Urine Protein Conf (Negative) Urine Ketones (NEGATIVE) Urine Nitrite (NEGATIVE) Urine Bilirubin (NEGATIVE) Urine Urobilinogen (0-1) mg/dL Urine Leukocytes (NEGATIVE) Urine WBC (Auto) (0-5) /HPF Urine RBC (Auto) (0-2) /HPF U Epithel Cells (Auto) (FEW) /HPF Urine Bacteria (Auto) (NEGATIVE) /HPF Urine RBC (0-5) Luke/ul Ur Culture Indicated? Urine Glucose (NEGATIVE) mg/dL Influenza Type A Ag NEGATIVE (NEGATIVE) Influenza Type B Ag NEGATIVE (NEGATIVE) RSV (PCR) NEGATIVE (Negative) SARS-CoV-2 (PCR) POSITIVE A (NEGATIVE) 02/09/22 02/09/22 Range/Units 03:33 03:33 WBC 6.4 (4.0-10.5) x10^3/uL RBC 3.81 L (4.1-5.4) x10^6/uL Hgb 11.1 L (12.0-16.0) g/dL Hct 36.7 (35-47) % MCV 96.3 (78-100) fL MCH 29.1 (26-32) pg MCHC 30.2 L (32-36) g/dL RDW 15.1 H (11.5-14.0) % Plt Count 282 (150-450) x10^3/uL MPV 9.2 (7.5-11.0) fL Gran % 79.0 H (36.0-66.0) % Immature Gran % (Auto) 0.5 H (0.00-0.4) % Nucleat RBC Rel Count 0.0 (0.00-0.1) % Eos # (Auto) 0.14 (0-0.5) x10^3/uL Immature Gran # (Auto) 0.03 (0.00-0.03) x10^3u/L Absolute Lymphs (auto) 0.95 L (1.0-4.6) x10^3/uL Absolute Monos (auto) 0.20 (0.0-1.3) x10^3/uL Absolute Nucleated RBC 0.00 (0.00-0.01) x10^3u/L Lymphocytes % 14.9 L (24.0-44.0) % Monocytes % 3.1 (0.0-12.0) % Eosinophils % 2.2 (0.00-5.0) % Basophils % 0.3 (0.0-0.4) % Absolute Granulocytes 5.04 (1.4-6.9) x10^3/uL Basophils # 0.02 (0-0.4) x10^3/uL PT (9.4-12.5) SECONDS INR (0.8-3.0) APTT (25.1-36.5) SECONDS Sodium 142 (137-145) mmol/L Potassium 4.3 (3.5-5.1) mmol/L Chloride 113 H (98-107) mmol/L Carbon Dioxide 21 L (22-30) mmol/L Anion Gap 11.9 (5-15) MEQ/L BUN 35 H (7-17) mg/dL Creatinine 1.08 H (0.52-1.04) mg/dL Estimated GFR 52.7 ML/MIN Glucose 98 (74-106) mg/dL Lactic Acid (0.4-2.0) Calcium 7.7 L (8.4-10.2) mg/dL Total Bilirubin 0.40 (0.2-1.3) mg/dL AST 23 (14-36) U/L ALT 18 (0-35) U/L Alkaline Phosphatase 98 (38-126) U/L Troponin I (0.000-0.034) ng/mL NT-Pro-B Natriuret Pep (0-900) pg/mL Serum Total Protein 6.7 (6.3-8.2) g/dL Albumin 3.4 L (3.5-5.0) g/dL Prealbumin 14.13 L (17.6-36.0) mg/dL Urinalys Dipstick Clnc Urine Color (YELLOW) Urine Appearance (CLEAR) Urine pH (5-6) Ur Specific [place] (1.005-1.025) POC Urine Protein Conf (Negative) Urine Ketones (NEGATIVE) Urine Nitrite (NEGATIVE) Urine Bilirubin (NEGATIVE) Urine Urobilinogen (0-1) mg/dL Urine Leukocytes (NEGATIVE) Urine WBC (Auto) (0-5) /HPF Urine RBC (Auto) (0-2) /HPF U Epithel Cells (Auto) (FEW) /HPF Urine Bacteria (Auto) (NEGATIVE) /HPF Urine RBC (0-5) Luke/ul Ur Culture Indicated? Urine Glucose (NEGATIVE) mg/dL Influenza Type A Ag (NEGATIVE) Influenza Type B Ag (NEGATIVE) RSV (PCR) (Negative) SARS-CoV-2 (PCR) (NEGATIVE) Microbiology 02/08/22 16:20 Blood Culture Gram Stain - Final Blood 02/08/22 16:48 Urine Culture - Preliminary Urine, Catheterized GRAM NEGATIVE ID AND SENSITIVITY PENDING - Radiology Impressions Radiology Exams & Impressions: Radiology Procedures Category Date Time Status CHEST 1 VIEW (PORTABLE) Stat Exams 02/08/22 16:16 Completed Assessment/Plan (1) COVID-19 Current Visit: Yes Status: Acute Assessment & Plan: on dexamethasone and remdesivir. Code(s): U07.1 - COVID-19 (2) UTI (urinary tract infection) Current Visit: Yes Status: Acute Qualifiers: Urinary tract infection type: acute cystitis Hematuria presence: with hematuria Qualified Code(s): N30.01 - Acute cystitis with hematuria Assessment & Plan: culture pending. Code(s): N39.0 - URINARY TRACT INFECTION, SITE NOT SPECIFIED (3) PNA (pneumonia) Current Visit: Yes Status: Acute Qualifiers: Pneumonia type: due to unspecified organism Laterality: left Lung location: lower lobe of lung Qualified Code(s): J18.9 - Pneumonia, unspecified organism Assessment & Plan: on rocephin and zithromax day #2 Code(s): J18.9 - PNEUMONIA, UNSPECIFIED ORGANISM
[2022-02-09] MEDS: REMDESIVIR 100 MG in Sodium Chloride 100ML MINI-BAG PLUS 100 ML IV SCH (21:21)
[2022-02-09] MEDS: AMITRIPTYLINE 25 MG TABLET PO SCH (21:21)
[2022-02-09] MEDS: ZOCOR 20MG PO SCH (21:21)
[2022-02-09] MEDS ORDERED: AMITRIPTYLINE 25 MG TABLET PO SCH (22:00)
[2022-02-09] MEDS ORDERED: NON-FORMULARY ITEM (Atorvastatin Calcium [Lipitor] 20 MG Tablet) PO SCH (22:00)
[2022-02-09] MEDS: ROCEPHIN 1 Gm-D5w 50 ml Bag** 1 G/50 ML IVPB IV SCH (23:22)
[2022-02-10 05:23] LABS: Absolute Neutrophil Ct (ANC) 3.31 x10^3/uL (1.4-6.9); Basophil (Absolute #) 0.01 x10^3/uL (0-0.4); Eosinophil (Absolute #) 0 x10^3/uL (0-0.5); Hematocrit 35.9 % (35-47); Hemoglobin 10.7 g/dL (12.0-16.0); Lymphocyte (Absolute #) 1.41 x10^3/uL (1.0-4.6); Lymphocytes % 27.3 % (24.0-44.0); Mean Corpuscular Hemoglobin 28.6 pg (26-32); Mean Corpuscular Hgb Concent. 29.8 g/dL (32-36); Mean Platelet Volume 9.4 fL (7.5-11.0); Monocyte (Absolute #) 0.41 x10^3/uL (0.0-1.3); Monocytes % 7.9 % (0.0-12.0); Neutrophil % 64.2 % (36.0-66.0); Platelet Count 292 x10^3/uL (150-450); Red Blood Count 3.74 x10^6/uL (4.1-5.4); Red Cell Distribution Width 14.8 % (11.5-14.0); White Blood Count 5.2 x10^3/uL (4.0-10.5)
[2022-02-10] MEDS: HEPARIN 5000 UNITS/0.5 ML (HIGH RISK MED) SQ SCH ×3 (05:27→22:03)
[2022-02-10 06:28] LABS: ALBUMIN 3.2 g/dL (3.5-5.0); ALKALINE PHOSPHATASE 89 U/L (38-126); ANION GAP 10.8 MEQ/L (5-15); BLOOD UREA NITROGEN 23 mg/dL (7-17); CHLORIDE 115 mmol/L (98-107); Calcium 7.5 mg/dL (8.4-10.2); Carbon Dioxide 20 mmol/L (22-30); Creatinine 1 0.73 mg/dL (0.52-1.04); EST GLOMERULAR FILTRATION RATE > 60.0 ML/MIN; Glucose 102 mg/dL (74-106); Potassium 4.4 mmol/L (3.5-5.1); SGOT/AST 24 U/L (14-36); SGPT/ALT 20 U/L (0-35); SODIUM 141 mmol/L (137-145); Total Protein 6.2 g/dL (6.3-8.2)
[2022-02-10] MEDS: Zestril 20 MG PO SCH (10:16)
[2022-02-10] MEDS: Decadron 4 MG INJ IV SCH (10:16)
[2022-02-10] MEDS: Coreg PO SCH (10:16)
[2022-02-10] MEDS: ZOLOFT 50 MG TABLET PO SCH (10:16)
[2022-02-10] MEDS: Neurontin PO SCH ×3 (10:16→22:03)
[2022-02-10] MEDS: PROTONIX 40 MG IV IV SCH (10:16)
--- NOTE | 2022-02-10 13:29 | PCM.NOTE ---
Date and Time: 02/10/22 1326 Subjective Assessment: Pt is feeling better, but still ill with cough/SOB. Josué po. - Review of Systems Constitutional: No Fever Respiratory: Cough, Short Of Breath Objective Exam General Appearance: no apparent distress, alert Neurologic Exam: cooperative, normal mood/affect Skin Exam: warm, dry, pale (improved from yesterday), No rash Eye Exam: eyes nml inspection Ears, Nose, Throat Exam: moist mucous membranes Neck Exam: normal inspection Respiratory Exam: normal breath sounds, lungs clear, No crackles/rales, No rhonchi, No wheezing Cardiovascular Exam: regular rate/rhythm, normal heart sounds, No murmur Gastrointestinal/Abdomen Exam: soft, normal bowel sounds, tenderness (gen mild ttp), No distention, No mass, No guarding, No rebound Extremity Exam: No pedal edema, No swelling Back Exam: normal inspection, No rash OBJECTIVE DATA Vital Signs: Vital Signs - 24 hr Temp Pulse Resp BP Pulse Ox 02/10/22 12:00 22 02/10/22 11:08 97.1 F 77 24 143/65 98 02/10/22 10:00 20 02/10/22 08:00 97.3 F 71 20 119/67 92 L 02/10/22 05:59 18 02/10/22 04:00 97.1 F 66 18 128/66 96 02/10/22 01:46 18 02/10/22 00:00 97.9 F 65 18 125/64 97 02/09/22 22:00 18 02/09/22 20:00 97.1 F 77 18 136/70 92 L 02/09/22 17:18 18 02/09/22 16:00 97.6 F 74 18 136/83 90 L Pain Assessment - Last Documented Pain Intensity 0 Intake and Output: Intake & Output 02/08/22 02/09/22 02/10/22 02/11/22 11:59 11:59 11:59 11:59 Intake Total 1104 3589 Output Total 500 1100 Balance 604 2489 Weight 80.8 kg Lab Results: Lab Results-Last 24 Hours 02/10/22 02/10/22 Range/Units 05:15 05:15 WBC 5.2 (4.0-10.5) x10^3/uL RBC 3.74 L (4.1-5.4) x10^6/uL Hgb 10.7 L (12.0-16.0) g/dL Hct 35.9 (35-47) % MCV 96.0 (78-100) fL MCH 28.6 (26-32) pg MCHC 29.8 L (32-36) g/dL RDW 14.8 H (11.5-14.0) % Plt Count 292 (150-450) x10^3/uL MPV 9.4 (7.5-11.0) fL Gran % 64.2 (36.0-66.0) % Immature Gran % (Auto) 0.4 (0.00-0.4) % Nucleat RBC Rel Count 0.0 (0.00-0.1) % Eos # (Auto) 0 (0-0.5) x10^3/uL Immature Gran # (Auto) 0.02 (0.00-0.03) x10^3u/L Absolute Lymphs (auto) 1.41 (1.0-4.6) x10^3/uL Absolute Monos (auto) 0.41 (0.0-1.3) x10^3/uL Absolute Nucleated RBC 0.00 (0.00-0.01) x10^3u/L Lymphocytes % 27.3 (24.0-44.0) % Monocytes % 7.9 (0.0-12.0) % Eosinophils % 0.0 (0.00-5.0) % Basophils % 0.2 (0.0-0.4) % Absolute Granulocytes 3.31 (1.4-6.9) x10^3/uL Basophils # 0.01 (0-0.4) x10^3/uL Sodium 141 (137-145) mmol/L Potassium 4.4 (3.5-5.1) mmol/L Chloride 115 H (98-107) mmol/L Carbon Dioxide 20 L (22-30) mmol/L Anion Gap 10.8 (5-15) MEQ/L BUN 23 H (7-17) mg/dL Creatinine 0.73 (0.52-1.04) mg/dL Estimated GFR > 60.0 ML/MIN Glucose 102 (74-106) mg/dL Calcium 7.5 L (8.4-10.2) mg/dL Total Bilirubin 0.30 (0.2-1.3) mg/dL AST 24 (14-36) U/L ALT 20 (0-35) U/L Alkaline Phosphatase 89 (38-126) U/L Serum Total Protein 6.2 L (6.3-8.2) g/dL Albumin 3.2 L (3.5-5.0) g/dL Radiology Exams: Radiology Procedures Category Date Time Status CHEST 1 VIEW (PORTABLE) Stat Exams 02/08/22 16:16 Completed Assessment/Plan (1) COVID-19 Current Visit: Yes Status: Acute Assessment & Plan: Improving. On IV remdesivir and dexamethasone. On room air. Code(s): U07.1 - COVID-19 (2) UTI (urinary tract infection) Current Visit: Yes Status: Acute Qualifiers: Urinary tract infection type: acute cystitis Hematuria presence: with hematuria Qualified Code(s): N30.01 - Acute cystitis with hematuria Assessment & Plan: Positive for E. coli, susceptible to Rocephin (on day #3). Code(s): N39.0 - URINARY TRACT INFECTION, SITE NOT SPECIFIED (3) PNA (pneumonia) Current Visit: Yes Status: Acute Qualifiers: Pneumonia type: due to unspecified organism Laterality: left Lung location: lower lobe of lung Qualified Code(s): J18.9 - Pneumonia, unspecified organism Code(s): J18.9 - PNEUMONIA, UNSPECIFIED ORGANISM (4) Hemiplegia Current Visit: Yes Status: Acute Qualifiers: Hemiplegia type: spastic Hemiplegia etiology: late effect of cerebrovascular disease Cerebrovascular disease type: cerebral infarction Hemiplegia laterality: right dominant side Qualified Code(s): I69.351 - Hemiplegia and hemiparesis following cerebral infarction affecting right dominant side Assessment & Plan: She requires total care, and her was just transferred to [facility] with Covid. When she is ready to go home, will need to work with discharge planning to ensure she receives appropriate care. Code(s): G81.90 - HEMIPLEGIA, UNSPECIFIED AFFECTING UNSPECIFIED SIDE
[2022-02-10] MEDS: Sodium Chloride 0.9% 1000 ML 1,000 ML IV SCH (14:52)
[2022-02-10] MEDS: REMDESIVIR 100 MG in Sodium Chloride 100ML MINI-BAG PLUS 100 ML IV SCH (22:02)
[2022-02-10] MEDS: ZOCOR 20MG PO SCH (22:02)
[2022-02-10] MEDS: ROCEPHIN 1 Gm-D5w 50 ml Bag** 1 G/50 ML IVPB IV SCH (22:02)
[2022-02-10] MEDS: Ativan 1 MG PO PRN (22:02)
[2022-02-10] MEDS: AMITRIPTYLINE 25 MG TABLET PO SCH (22:03)
[2022-02-11] MEDS: Sodium Chloride 0.9% 1000 ML 1,000 ML IV SCH ×3 (02:01→21:30)
[2022-02-11] MEDS: HEPARIN 5000 UNITS/0.5 ML (HIGH RISK MED) SQ SCH ×3 (05:43→21:31)
[2022-02-11] MEDS: TYLENOL 325 MG PO PRN ×2 (09:39→21:32)
[2022-02-11] MEDS: Zestril 20 MG PO SCH (09:39)
[2022-02-11] MEDS: Decadron 4 MG INJ IV SCH (09:40)
[2022-02-11] MEDS: ZOLOFT 50 MG TABLET PO SCH (09:40)
[2022-02-11] MEDS: Neurontin PO SCH ×3 (09:40→21:32)
[2022-02-11] MEDS: Coreg PO SCH (09:40)
[2022-02-11] MEDS: PROTONIX 40 MG IV IV SCH (09:40)
--- NOTE | 2022-02-11 18:52 | PCM.NOTE ---
Date and Time: 02/11/221848 Subjective Assessment: Patient very talkative ,excited to have company. Decreased appetite but taking ensure icecream shake. Is aware that her is sick with Covid at another hospital. OBJECTIVE DATA Vital Signs: Vital Signs - 24 hr Temp Pulse Resp BP Pulse Ox 02/11/22 18:00 20 02/11/22 16:00 98.2 F 82 20 130/83 96 02/11/22 14:00 18 02/11/22 12:00 98.0 F 80 16 143/74 93 L 02/11/22 10:00 20 02/11/22 08:14 96 02/11/22 08:00 98.1 F 81 19 148/72 98 02/11/22 06:00 18 02/11/22 04:00 97.9 F 83 18 141/63 97 02/11/22 02:00 18 02/11/22 00:00 97.7 F 68 20 137/66 98 02/10/22 22:00 18 02/10/22 20:00 97.1 F 83 18 135/76 95 02/10/22 19:05 97 Pain Assessment - Last Documented Pain Intensity 0 Pain Scale Used [facility] Intake and Output: Intake & Output 02/09/22 02/10/22 02/11/22 02/12/22 11:59 11:59 11:59 11:59 Intake Total 1104 3589 2872 1700 Output Total 500 1100 1175 700 Balance 604 2489 1697 1000 Weight 80.8 kg Multi-Disciplinary Progress Notes: Multi-Disciplinary Progress Notes 02/11/22 12:24 Case Management Note by Gita Ramos Addendum entered by Gita Ramos 02/11/22 12:27: CALLED SISTER TO UPDATE- LEFT MESSAGE Original Note: [facility]EPT[facility] AND WILL START PRECERT TODAY Initialized on 02/11/22 12:24 - END OF NOTE 02/11/22 11:23 Case Management Note by Gita Ramos REFERRAL FAXED TO [facility] PER FAMILY REQUEST Initialized on 02/11/22 11:23 - END OF NOTE
[2022-02-11] MEDS: PROVENTIL 2.5 MG/3 ML NEB IH SCH (20:26)
[2022-02-11] MEDS: AMITRIPTYLINE 25 MG TABLET PO SCH (21:31)
[2022-02-11] MEDS: Ativan 1 MG PO PRN (21:32)
[2022-02-11] MEDS: ZOCOR 20MG PO SCH (21:32)
[2022-02-11] MEDS: ROCEPHIN 1 Gm-D5w 50 ml Bag** 1 G/50 ML IVPB IV SCH (21:32)
[2022-02-11] MEDS: REMDESIVIR 100 MG in Sodium Chloride 100ML MINI-BAG PLUS 100 ML IV SCH (22:09)
[2022-02-12] MEDS: HEPARIN 5000 UNITS/0.5 ML (HIGH RISK MED) SQ SCH ×3 (05:32→21:33)
[2022-02-12] MEDS: Sodium Chloride 0.9% 1000 ML 1,000 ML IV SCH (06:29)
[2022-02-12] MEDS: PROVENTIL 2.5 MG/3 ML NEB IH SCH ×3 (07:00→18:51)
[2022-02-12 07:34] LABS: Hematocrit 35.1 % (35-47); Hemoglobin 10.5 g/dL (12.0-16.0); Mean Cell Volume 96.2 fL (78-100); Mean Corpuscular Hemoglobin 28.8 pg (26-32); Mean Corpuscular Hgb Concent. 29.9 g/dL (32-36); Mean Platelet Volume 9.3 fL (7.5-11.0); Platelet Count 284 x10^3/uL (150-450); Red Blood Count 3.65 x10^6/uL (4.1-5.4); Red Cell Distribution Width 14.9 % (11.5-14.0); White Blood Count 6.9 x10^3/uL (4.0-10.5)
[2022-02-12 08:09] LABS: ANION GAP 9.4 MEQ/L (5-15); BLOOD UREA NITROGEN 19 mg/dL (7-17); CHLORIDE 117 mmol/L (98-107); Calcium 7.5 mg/dL (8.4-10.2); Carbon Dioxide 19 mmol/L (22-30); Creatinine 1 0.66 mg/dL (0.52-1.04); EST GLOMERULAR FILTRATION RATE > 60.0 ML/MIN; Glucose 92 mg/dL (74-106); Potassium 3.9 mmol/L (3.5-5.1); SODIUM 141 mmol/L (137-145)
--- NOTE | 2022-02-12 10:46 | PCM.NOTE ---
Date and Time: 02/12/22 1040 Subjective Assessment: Pt is a little less talkative today, but I had to wake her. Denies any issues, says she is feeling better, but grimaces before my exam. I asked what was wrong, she said, "What?" and I asked if her abd was hurting and she said yes, pointed to suprapubic area. - Review of Systems Constitutional: No Fever Respiratory: Cough Abdominal/Gastrointestinal: Abdominal Pain (possibly) Objective Exam General Appearance: no apparent distress, alert Neurologic Exam: cooperative, disoriented (per usual) Skin Exam: normal color, warm, dry, No rash Eye Exam: eyes nml inspection Ears, Nose, Throat Exam: moist mucous membranes Neck Exam: normal inspection Respiratory Exam: normal breath sounds, crackles/rales (rales scattered), No rhonchi, No wheezing Cardiovascular Exam: regular rate/rhythm, normal heart sounds, No murmur Gastrointestinal/Abdomen Exam: soft, normal bowel sounds, tenderness (suprapubic, mild), No distention, No mass, No guarding, No rebound Extremity Exam: normal inspection, No pedal edema, No swelling OBJECTIVE DATA Vital Signs: Vital Signs - 24 hr Temp Pulse Resp BP Pulse Ox 02/12/22 08:00 97.3 F 81 18 146/71 97 02/12/22 07:06 68 20 95 02/12/22 04:00 97.1 F 77 18 143/70 95 02/12/22 02:00 18 02/12/22 00:00 97.6 F 80 18 159/81 02/11/22 20:26 83 18 96 02/11/22 20:00 97.1 F 94 H 22 142/75 97 02/11/22 18:00 20 02/11/22 16:00 98.2 F 82 20 130/83 96 02/11/22 14:00 18 02/11/22 12:00 98.0 F 80 16 143/74 93 L Pain Assessment - Last Documented Pain Intensity 0 Pain Scale Used [facility] Intake and Output: Intake & Output 02/09/22 02/10/22 02/11/22 02/12/22 11:59 11:59 11:59 11:59 Intake Total 1104 3589 2872 3191 Output Total 500 1100 1175 1650 Balance 604 2489 1697 1541 Weight 80.8 kg Lab Results: Lab Results-Last 24 Hours 02/12/22 02/12/22 Range/Units 07:30 07:30 WBC 6.9 (4.0-10.5) x10^3/uL RBC 3.65 L (4.1-5.4) x10^6/uL Hgb 10.5 L (12.0-16.0) g/dL Hct 35.1 (35-47) % MCV 96.2 (78-100) fL MCH 28.8 (26-32) pg MCHC 29.9 L (32-36) g/dL RDW 14.9 H (11.5-14.0) % Plt Count 284 (150-450) x10^3/uL MPV 9.3 (7.5-11.0) fL Sodium 141 (137-145) mmol/L Potassium 3.9 (3.5-5.1) mmol/L Chloride 117 H (98-107) mmol/L Carbon Dioxide 19 L (22-30) mmol/L Anion Gap 9.4 (5-15) MEQ/L BUN 19 H (7-17) mg/dL Creatinine 0.66 (0.52-1.04) mg/dL Estimated GFR > 60.0 ML/MIN Glucose 92 (74-106) mg/dL Calcium 7.5 L (8.4-10.2) mg/dL Multi-Disciplinary Progress Notes: Multi-Disciplinary Progress Notes 02/11/22 12:24 Case Management Note by Gita Ramos Addendum entered by Gita Ramos 02/11/22 12:27: CALLED SISTER TO UPDATE- LEFT MESSAGE Original Note: [facility] HAS ACCEPTED AND WILL START PRECERT TODAY Initialized on 02/11/22 12:24 - END OF NOTE 02/11/22 11:23 Case Management Note by Gita Ramos REFERRAL FAXED TO [facility] PER FAMILY REQUEST Initialized on 02/11/22 11:23 - END OF NOTE Assessment/Plan (1) COVID-19 Current Visit: Yes Status: Acute Assessment & Plan: Will recheck CXR, her cough sounds worse to me this morning. Would like her to use IS, but will need supervision to do so. Has albuterol nebs per RT. Code(s): U07.1 - COVID-19 (2) Abdominal pain Current Visit: Yes Status: Acute Qualifiers: Abdominal location: lower abdomen, unspecified Qualified Code(s): R10.30 - Lower abdominal pain, unspecified Assessment & Plan: Traditionally she is a horrible historian but she did make a grimace before I even examined her, which is not her normal. Check the CT abd/pelvis. Code(s): R10.9 - UNSPECIFIED ABDOMINAL PAIN (3) UTI (urinary tract infection) Current Visit: Yes Status: Acute Qualifiers: Urinary tract infection type: acute cystitis Hematuria presence: with hematuria Qualified Code(s): N30.01 - Acute cystitis with hematuria Assessment & Plan: Has been appropriately treated with IV rocephin. Code(s): N39.0 - URINARY TRACT INFECTION, SITE NOT SPECIFIED (4) PNA (pneumonia) Current Visit: Yes Status: Acute Qualifiers: Pneumonia type: due to unspecified organism Laterality: left Lung location: lower lobe of lung Qualified Code(s): J18.9 - Pneumonia, unspecified organism Assessment & Plan: recheck Code(s): J18.9 - PNEUMONIA, UNSPECIFIED ORGANISM (5) Hemiplegia Current Visit: Yes Status: Chronic Qualifiers: Hemiplegia type: spastic Hemiplegia etiology: late effect of cerebrovascular disease Cerebrovascular disease type: cerebral infarction Hemiplegia laterality: right dominant side Qualified Code(s): I69.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
[2022-02-12] MEDS: Zestril 20 MG PO SCH (11:10)
[2022-02-12] MEDS: Neurontin PO SCH ×3 (11:10→21:33)
[2022-02-12] MEDS: ZOLOFT 50 MG TABLET PO SCH (11:10)
[2022-02-12] MEDS: Coreg PO SCH (11:10)
[2022-02-12] MEDS: PROTONIX 40 MG IV IV SCH (11:10)
[2022-02-12] MEDS: Decadron 4 MG INJ IV SCH (11:10)
--- NOTE | 2022-02-12 16:52 | XRAY ---
Indication: Pain. Multiple contiguous axial images obtained through the abdomen and pelvis without contrast. Comparison: None There is beam artifact from patient's arms. Also markedly diffuse respiration artifact throughout. Lung bases demonstrates borderline cardiomegaly with small bibasilar effusions and compressive atelectasis. Noncontrasted stomach and bowel loops appear grossly nonobstructed. Mild sigmoid diverticulosis. Pelvis demonstrates small nonspecific free fluid. No walled off fluid collection or free air. Urinary bladder is near empty with Nix balloon catheter in situ. Incidental tiny gallstones/gravel. Remaining liver, gallbladder, pancreas, spleen, adrenal glands, kidneys, ureters, bladder, and uterus are unremarkable for noncontrast exam. Mild scattered aortoiliac calcifications without AAA. Osseous structures intact with osteopenia, remote T12 fracture, and moderate degenerative changes of both hips. Impression: 1. Diffuse respiration artifact and beam artifact from patient's arms limits exam. 2. Borderline cardiomegaly with small bilateral effusions. Rule out cardiac decompensation/CHF versus fluid overload. 3. Small nonspecific pelvic free fluid. 4. Tiny gallstones/gravel better evaluated with sonogram if clinically warranted. 5. Incidental sigmoid diverticulosis, Nix balloon catheter in situ, arteriosclerotic disease, and chronic bony findings.
--- NOTE | 2022-02-12 17:09 | XRAY ---
Indication: Cough. Covid 19. Comparison: February 08, 2022 PA/lateral chest demonstrates stable mild left base infiltrate/atelectasis/effusion with new minimal right base infiltrate/atelectasis/effusion. Heart not enlarged with stable right central venous access catheter.
[2022-02-12] MEDS: AMITRIPTYLINE 25 MG TABLET PO SCH (21:33)
[2022-02-12] MEDS: ZOCOR 20MG PO SCH (21:34)
[2022-02-12] MEDS: Ativan 1 MG PO PRN (21:34)
[2022-02-12] MEDS: ROCEPHIN 1 Gm-D5w 50 ml Bag** 1 G/50 ML IVPB IV SCH (21:34)
[2022-02-12] MEDS: TYLENOL 325 MG PO PRN (21:34)
[2022-02-12] MEDS: REMDESIVIR 100 MG in Sodium Chloride 100ML MINI-BAG PLUS 100 ML IV SCH (22:17)
[2022-02-13 01:19] VITALS: BP 157/71
[2022-02-13] MEDS: PROVENTIL 2.5 MG/3 ML NEB IH SCH (07:10)
[2022-02-13 07:22] LABS: Absolute Neutrophil Ct (ANC) 4.05 x10^3/uL (1.4-6.9); Basophil (Absolute #) 0.03 x10^3/uL (0-0.4); Eosinophil % 0.3 % (0.00-5.0); Eosinophil (Absolute #) 0.02 x10^3/uL (0-0.5); Hematocrit 35.6 % (35-47); Hemoglobin 11.2 g/dL (12.0-16.0); Lymphocyte (Absolute #) 1.81 x10^3/uL (1.0-4.6); Lymphocytes % 26.3 % (24.0-44.0); Mean Cell Volume 90.8 fL (78-100); Mean Corpuscular Hemoglobin 28.6 pg (26-32); Mean Corpuscular Hgb Concent. 31.5 g/dL (32-36); Mean Platelet Volume 9.1 fL (7.5-11.0); Monocyte (Absolute #) 0.81 x10^3/uL (0.0-1.3); Monocytes % 11.8 % (0.0-12.0); Platelet Count 345 x10^3/uL (150-450); Red Blood Count 3.92 x10^6/uL (4.1-5.4); Red Cell Distribution Width 14.8 % (11.5-14.0); White Blood Count 6.9 x10^3/uL (4.0-10.5)
[2022-02-13] MEDS: HEPARIN 5000 UNITS/0.5 ML (HIGH RISK MED) SQ SCH (07:55)
[2022-02-13 08:09] LABS: ALKALINE PHOSPHATASE 74 U/L (38-126); ANION GAP 11.5 MEQ/L (5-15); BLOOD UREA NITROGEN 17 mg/dL (7-17); CHLORIDE 113 mmol/L (98-107); Calcium 7.8 mg/dL (8.4-10.2); Carbon Dioxide 19 mmol/L (22-30); Creatinine 1 0.59 mg/dL (0.52-1.04); EST GLOMERULAR FILTRATION RATE > 60.0 ML/MIN; Glucose 94 mg/dL (74-106); Potassium 4.1 mmol/L (3.5-5.1); SGOT/AST 20 U/L (14-36); SGPT/ALT 19 U/L (0-35); SODIUM 139 mmol/L (137-145)
[2022-02-13] MEDS ORDERED: Lasix 40 MG/4 ML IV ONE (08:27)
--- NOTE | 2022-02-13 08:33 | PCM.DS ---
Discharge Summary Date of Admission: 02/09/22 16:18 Admitting Physician: CURTIS CARMONA Primary Care Provider: CURTIS CARMONA Allergies Allergies No Known Drug Allergies Allergy (Verified 02/08/22 16:12) Hospital Summary - Hospital Course Hospital Course: Pt is a 76 yo female pt of mine from [facility] with hx CVA (with R dominant hemiplegia, flaccid), HTN, anxiety, hyperlipidemia who was admitted through ER with Covid, UTI, acute renal insufficiency, and PNA. She was started on IV antibiotics. Has improved, although wasn't feeling as well yesterday; CT abd/ pelvis nonacute (tiny gallstone) with some increased pulmonary infiltrates. She will be given IV lasix here and several days of po lasix at the SNF. Has weakness here. Has damon catheter and will be discharged with same; will likely need to be discontinued in the coming week. Her eGFR was 30 on admission but > 60 now. CXR on admission with LLL infiltrate v atelectasis. - Vitals & Intake/Output Vital Signs: Vital Signs Temperature 97.1 F 02/13/22 00:00 Pulse Rate 79 02/13/22 07:10 Respiratory Rate 18 02/13/22 07:10 Blood Pressure 157/71 02/13/22 00:00 O2 Sat by Pulse Oximetry 97 02/13/22 07:10 Intake & Output: Intake & Output 02/10/22 02/11/22 02/12/22 02/13/22 11:59 11:59 11:59 11:59 Intake Total 3589 2872 3191 550 Output Total 1100 1175 1650 1150 Balance 2489 1697 1541 -600 Weight 80.8 kg - Lab Result Diagrams: 02/13/22 06:57 02/13/22 06:57 Lab Results-Last 24 Hrs: Lab Results-Last 24 Hours 02/13/22 02/13/22 Range/Units 06:57 06:57 WBC 6.9 (4.0-10.5) x10^3/uL RBC 3.92 L (4.1-5.4) x10^6/uL Hgb 11.2 L (12.0-16.0) g/dL Hct 35.6 (35-47) % MCV 90.8 (78-100) fL MCH 28.6 (26-32) pg MCHC 31.5 L (32-36) g/dL RDW 14.8 H (11.5-14.0) % Plt Count 345 (150-450) x10^3/uL MPV 9.1 (7.5-11.0) fL Gran % 59.0 (36.0-66.0) % Immature Gran % (Auto) 2.2 H (0.00-0.4) % Nucleat RBC Rel Count 0.0 (0.00-0.1) % Eos # (Auto) 0.02 (0-0.5) x10^3/uL Immature Gran # (Auto) 0.15 H (0.00-0.03) x10^3u/L Absolute Lymphs (auto) 1.81 (1.0-4.6) x10^3/uL Absolute Monos (auto) 0.81 (0.0-1.3) x10^3/uL Absolute Nucleated RBC 0.00 (0.00-0.01) x10^3u/L Lymphocytes % 26.3 (24.0-44.0) % Monocytes % 11.8 (0.0-12.0) % Eosinophils % 0.3 (0.00-5.0) % Basophils % 0.4 (0.0-0.4) % Absolute Granulocytes 4.05 (1.4-6.9) x10^3/uL Basophils # 0.03 (0-0.4) x10^3/uL Sodium 139 (137-145) mmol/L Potassium 4.1 (3.5-5.1) mmol/L Chloride 113 H (98-107) mmol/L Carbon Dioxide 19 L (22-30) mmol/L Anion Gap 11.5 (5-15) MEQ/L BUN 17 (7-17) mg/dL Creatinine 0.59 (0.52-1.04) mg/dL Estimated GFR > 60.0 ML/MIN Glucose 94 (74-106) mg/dL Calcium 7.8 L (8.4-10.2) mg/dL Total Bilirubin 0.30 (0.2-1.3) mg/dL AST 20 (14-36) U/L ALT 19 (0-35) U/L Alkaline Phosphatase 74 (38-126) U/L Serum Total Protein 6.0 L (6.3-8.2) g/dL Albumin 3.0 L (3.5-5.0) g/dL Micro Results-Entire Visit: Microbiology 02/08/22 16:10 Blood Culture Gram Stain - Final Blood Not Reportable Blood Culture - Final NO GROWTH 02/08/22 16:20 Blood Culture Gram Stain - Final Blood Blood Culture - Preliminary Coagulase Negative Staph. Possible Contaminant. Clinical judgement required. NO FURTHER WORKUP WILL BE PERFORMED UNLESS PHYSICIAN REQUESTED WITHIN THE NEXT 72 HOURS 02/08/22 16:48 Urine Culture - Final Urine, Catheterized Escherichia Coli - Radiology Exams Ordered Rad Exams-Entire Visit: Radiology Procedures Category Date Time Status ABDOMEN AND PELVIS W/0 CONTRAS [CT] Routine Exams 02/12/22 10:44 Completed CHEST 2 VIEWS (PA AND LAT) Urgent Exams 02/12/22 16:21 Completed - Procedures and Test Procedures and Tests throughout Hospitalization: Therapy Orders & Screens 02/08/22 18:50 Respiratory Therapy Consult ROUTINE Comment: Reason For Exam: 02/09/22 10:00 OT Screen per Nursing Assess ONCE Comment: Protocol Order Physician Instructions: Greater than 3 points order OT Admission Screening Reason For Exam: Triggered on Admission Diagnosis: covid Open Wound/Cellutlitis/Pressure Ulcers: No Acute Fx/ORIF/Change in wt bearing status: No Severe MUSCULOSKELETAL pain: No ADL Dysfunction: Yes Acute CVA w/Hemiparesis/Hemiplegia: No Decreased Functional Mobility/Strength: Yes Sprain/Strain: No Acute Post-op Mobility Dysfunction: No Total Points: 4 PT Screen per Nursing Assess ONCE Comment: Protocol Order Physician Instructions: Greater than 3 points order PT Admission Screenin Reason For Exam: Triggered on Admission Diagnosis: covid Open Wound/Cellutlitis/Pressure Ulcers: No Acute Fx/ORIF/Change in wt bearing status: No Severe MUSCULOSKELETAL pain: No ADL Dysfunction: Yes Acute CVA w/Hemiparesis/Hemiplegia: No Decreased Functional Mobility/Strength: Yes Sprain/Strain: No Acute Post-op Mobility Dysfunction: No Total Points: 4 ST Screen per Nursing Assess ONCE Comment: Protocol Order Physician Instructions: Greater than [address] Admission Screening Reason For Exam: Triggered on Admission Diagnosis: covid CVA/Dyshpagia/Aphasia: Yes Cognitive Deficits: Yes: dementia Dehydration/Nutrition Deficit: Yes Reflux: No Oral-Motor Difficulties: No Pneumonia: No Retirement Resident: No Total Points: 13 02/11/22 08:50 PT Eval & Treat (MD Order) ONCE Reason for Eval:: WEAKNESS, REHAB PLACEMENT Diagnosis: covid 02/11/22 19:05 Flutter Therapy UD Comment: Diagnosis: COVID-19, UTI, PNEUMONIA, DEHYDRATION 02/11/22 21:30 Respiratory Therapy Assessment DAILY Comment: Diagnosis: COVID-19, UTI, PNEUMONIA, DEHYDRATION Discharge Exam General Appearance: no apparent distress, alert Neurologic Exam: cooperative, normal mood/affect, disoriented (as usual) Eye Exam: eyes nml inspection Ears, Nose, Throat Exam: moist mucous membranes Neck Exam: normal inspection Respiratory Exam: diminished breath sounds (good air exchange), No crackles/rales, No rhonchi, No wheezing Cardiovascular Exam: regular rate/rhythm, normal heart sounds, No murmur Gastrointestinal/Abdomen Exam: soft, normal bowel sounds, No tenderness, No distention, No mass, No guarding, No rebound Extremity Exam: normal inspection, swelling (trace pretibial edema bilat) Skin Exam: normal color, warm, dry, No rash Final Diagnosis/Problem List - Final Discharge Diagnosis/Problem (1) COVID-19 Current Visit: Yes Status: Acute Assessment & Plan: much improved. finished remdesivir and has been on dexamethasone. Code(s): U07.1 - COVID-19 (2) UTI (urinary tract infection) Current Visit: Yes Status: Acute Assessment & Plan: adequately treated with 5d of IV rocephin. Code(s): N39.0 - URINARY TRACT INFECTION, SITE NOT SPECIFIED (3) Abdominal pain Current Visit: Yes Status: Resolved Code(s): R10.9 - UNSPECIFIED ABDOMINAL PAIN (4) PNA (pneumonia) Current Visit: Yes Status: Suspected Code(s): J18.9 - PNEUMONIA, UNSPECIFIED ORGANISM (5) Hemiplegia Current Visit: Yes Status: Chronic Code(s): G81.90 - HEMIPLEGIA, UNSPECIFIED AFFECTING UNSPECIFIED SIDE (6) Acute renal injury Current Visit: Yes Status: Acute Assessment & Plan: resolved Code(s): N17.9 - ACUTE KIDNEY FAILURE, UNSPECIFIED (7) Fluid overload Current Visit: Yes Status: Acute Assessment & Plan: was still running 100mL /hr IV fluid yesterday; has been taking in good po. Stopped that and IV lasix 40mg + po lasix 20mg/d x 2days. Code(s): E87.70 - FLUID OVERLOAD, UNSPECIFIED - Discharge Disposition: DC TO ANY "OTHER" HALFWAY Condition: Stable Prescriptions: New Furosemide 20 mg [Lasix 20 mg] 20 mg PO DAILY 2 Days #2 tablet Albuterol 2.5 mg/3 ml Neb [Proventil 2.5 mg/3 ml Neb] 2.5 mg IH TID PRN #60 PRN Reason: Shortness Of Breath Potassium Chloride 10 meq PO DAILY 2 Days #2 tablet Continue Amitriptyline HCl 25 mg [Amitriptyline 25 mg Tablet] 75 mg PO HS Atorvastatin Calcium [Lipitor] 1 tab PO HS Carvedilol [Coreg ] 1 tab PO DAILY Sertraline HCl 50 mg [Zoloft 50 mg Tablet] 50 mg PO DAILY Lisinopril 20 mg [Zestril 20 MG] 20 mg PO DAILY Gabapentin 100 mg PO TID Lorazepam 1 mg [Ativan 1 MG] 1 mg PO QHS PRN PRN Reason: Insomnia Follow up with: CURTIS CARMONA [Primary Care Provider] -
[2022-02-13] MEDS ORDERED: Klor Con PO ONE (09:00)
[2022-02-13 09:04] VITALS: PULSE 78; O2SAT 94
[2022-02-13] MEDS: PROTONIX 40 MG IV IV SCH (09:57)
[2022-02-13] MEDS: ZOLOFT 50 MG TABLET PO SCH (09:57)
[2022-02-13] MEDS: Decadron 4 MG INJ IV SCH (09:57)
[2022-02-13] MEDS: Neurontin PO SCH (09:57)
[2022-02-13] MEDS: Coreg PO SCH (09:57)
[2022-02-13] MEDS: Zestril 20 MG PO SCH (09:57)
[2022-02-13] MEDS: TYLENOL 325 MG PO PRN (09:57)
== END 2022-02-13 11:23 | DRG 177 ==
LOC: ED 16:06 → MED SURG 22:35 → OBSVTOIN 02-09 16:18
PROVIDERS: ADMIT Family Medicine; ATTEND Family Medicine
DX: U07.1 COVID-19 (principal); J18.9 Pneumonia, unspecified organism; N39.0 Urinary tract infection, site not specified; N17.9 Acute kidney failure, unspecified; I69.351 Hemiplegia and hemiparesis following cerebral infarction affecting right dominant side; R10.9 Unspecified abdominal pain; E87.70 Fluid overload, unspecified; I10 Essential (primary) hypertension; Z79.899 Other long term (current) drug therapy; Z20.828 Contact with and (suspected) exposure to other viral communicable diseases
CPT/HCPCS: 0241U; 36415; 51702; 71045; 71046; 74176; 80048; 80053; 81015; 83605; 83880; 84134; 84484; 85025; 85027; 85610; 85730; 87040; 87077; 87086; 87186; 93005; 93268; 94640; 94667; 94668; 94762; 96360; 96365; 97530; 99285; G0378; J0248; J0696; J1100; J1644; J1940; J7609; A9270-GY